=== PATIENT | female | born 1950 | race African-American/Black ===

== ENCOUNTER 2016-09-25 13:24 | Inpatient (IN) ==
--- NOTE | 2016-09-25 15:01 | Emergency Department Note ---
Arrival - Arrival Chief Complaint: Headache Stated Complaint: suresh,blurred vision,unbalanced,Dr armstrong sent ED Nursing Triage Note: pt was sent by dr armstrong. c/o headaches, off balance for a week. for the last week pt had a headhce when laying down. it would call her to sneezing and cough Mode of Arrival: Wheelchair Limitations: No Limitations Source: Patient Time Seen by Provider: 09/25/16 14:54 - History of Present Illness HPI Narrative: This is a 66-year-old black female who is complaining of a headache, off balance , and blurry vision for approximately 6-7 days. The patient was sent here from Dr. Armstrong's office. 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 She also states that she has an intracranial occipital lesion that was diagnosed 5 years ago at [place]. She describes the headache as encompassing the whole head with neck involvement, and states that she has point tenderness behind the eyes. She also states that she has had trouble regulating her blood pressure and her blood sugar. Onset (ago): week(s) (1) Consistency: intermittent Severity: moderate Allergies/Adverse Reactions: Allergies Allergy/AdvReac Type Severity Reaction Status Date / Time aspirin AdvReac DIFFICULTY Verified 09/25/16 15:55 SWALLOWING Home Medications: Home Medications Medication Instructions Recorded Confirmed Type Amitriptyline [Elavil] 10 mg PO DAILY 04/16/15 04/16/15 History Furosemide Tab [Lasix Tab] 20 mg PO DAILY 04/16/15 04/16/15 History Levothyroxine Tab [Synthroid Tab] 100 mcg PO DAILY@0700 04/16/15 04/16/15 History Naproxen [Naprosyn] 500 mg PO Q12H #30 tablet 04/16/15 Rx Omeprazole [Prilosec] 20 mg PO DAILY 04/16/15 04/16/15 History Oxycodone HCl [Oxycontin] 15 mg PO 04/16/15 04/16/15 History Pregabalin [Lyrica] 200 mg PO TID 04/16/15 04/16/15 History Valsartan/Hydrochlorothiazide 04/16/15 04/16/15 History [Diovan Hct 160-25 mg Tablet] Venlafaxine HCl [Effexor XR] 150 mg PO DAILY 04/16/15 04/16/15 History metFORMIN [Glucophage] 500 mg PO BID W/MEALS 04/16/15 04/16/15 History rOPINIRole [Requip] 1 mg PO BEDTIME 04/16/15 04/16/15 History Review of System - Review of System 12 point system: reviewed and no additional remarkable complaints except as stated - Review of System Constitutional: Present: as per HPI. Absent: fever Eyes: Present: as per HPI, vision change Neurological: Present: as per HPI, headache, abnormal gait (Off-balance) Medical,Surgical,& Family Hx - Medical History Cardio: History of: Hypertension Endocrine: History of: Diabetes Mellitus (NIDDM), Thyroid Disorder Rheumatology: History of;: Fibromyalgia Respiratory: History of: Respiratory Problems (blood clots in legs with filter) Musculoskeletal: History of: Musculoskeletal Problems (arthritis) - Social History Smoking Status: Never smoker Frequency of Alcohol Use: None Type of Drug Use: None Exam Physical Examination: - General General appearance: [alert, in mild to moderate distress] - Head Head exam: [Present: atraumatic, normocephalic, normal inspection] - Eye Eye exam: [Present: normal appearance, PERRL, EOMI] - ENT ENT exam: [Present: normal exam, normal oropharynx, mucous membranes moist, TM' s normal bilaterally, normal external ear exam] - Neck Neck exam: [Present: normal inspection, full ROM, trachea midline] - Chest Chest inspection: [Present: normal inspection, symmetric chest wall rise] - Respiratory Respiratory exam: [Present: normal lung sounds bilaterally] - Cardiovascular Cardiovascular exam: [Present: regular rate, normal rhythm, normal heart sounds] - Abdominal Exam Abdominal exam: [Present: soft, normal bowel sounds] - Extremities Exam Extremities exam: [Present: normal inspection, full ROM] - Back Exam Back exam: [Present: normal inspection, full ROM] - Neurological Exam Neurological exam: [Present: alert, oriented X3. 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 - Consultations Consultation #1: I have spoken with Mark in hospitalist services and he will come see the patient in nonurgent. Time: 17:26 Results - Labs CBC & BMP: 09/25/16 15:03 09/25/16 15:03 Lab Results: I have reviewed the patients labs - Diagnostic Findings Procedure: CT: image reviewed by me, report reviewed by me (No acute intracranial pathology identified) Disposition Clinical Impression: Headache, Visual disturbance, Loss of balance Case discussed with: patient Disposition: Still a Patient Condition: Stable Time of Disposition: 17:30
--- NOTE | 2016-09-25 15:32 | CT Report ---
CT of the head without contrast. Indication: Headaches. Balance problems. Visual disturbances. Comparison: April 08, 2014. There is a partial empty sella. The calvarium is intact. The included paranasal sinuses and the mastoid air cells are clear. The internal auditory canals are symmetric. The ventricles are normal in size and configuration for the patient's age. There is bilateral basal ganglial calcification. There is no mass effect, midline shift, or area of hemorrhage. No cortical infarcts are seen. Impression: No acute intracranial process or significant interval change is seen. The CT exam was performed using one or more of the following dose reduction techniques: Automated exposure control, adjustment of the mA and/or kV according to patient size, or use of iterative reconstruction technique. PROCEDURE INTERPRETED AT [facility] DEPARTMENT OF RADIOLOGY Final Report Signed by: Dr. Padmini Byrne
[2016-09-25 15:49] LABS: Basophils % 0.7 % (0.0-0.8); Eosinophils # 0.2 10*3/uL (0.0-0.87); Eosinophils % 3.6 % (0.00-10.9); Hematocrit 45.2 VOL% (35.7-47.0); Hemoglobin 15.4 GM/DL (12.0-16.0); Immature Granulocytes % 0.2 %; Immature Granulocytes Absolute 0.01 #; Lymphocytes # 2.8 10*3/uL (1.4-4.0); Lymphocytes % 45.5 % (21.3-54.2); Mean Corpuscular HGB Conc 34.1 GM/DL (32-36); Mean Corpuscular Hemoglobin 32 PG (27-34); Mean Corpuscular Volume 93.4 FL (87-102); Mean Platelet Volume 9.4 FL (9.6-12.0); Monocytes # 0.3 10*3/uL (0.11-0.8); Monocytes % 5.1 % (1.7-12.7); Neutrophils # 2.7 10*3/uL (1.4-7.4); Neutrophils % 44.9 % (38.7-73.9); Platelet Count 213 T/CUMM (130-400); Red Blood Count 4.84 MC/CUMM (3.8-5.5); Red Cell Distribution Width 12.7 % (9.3-17.3); White Blood Count 6.1 T/CUMM (4-12)
[2016-09-25] MEDS ORDERED: diphenhydrAMINE 50 MG/1 ML VIAL IV STA (15:53)
[2016-09-25] MEDS ORDERED: KETOROLAC 30 MG/1 ML VIAL IV STA (15:53)
[2016-09-25] MEDS ORDERED: diphenhydrAMINE 50 MG/1 ML VIAL ONE (16:01)
[2016-09-25] MEDS ORDERED: KETOROLAC 30 MG/1 ML VIAL ONE (16:01)
[2016-09-25 16:28] LABS: Calcium 9.4 MG/DL (8.5-10.1); Osmolality,Calculated 276.5 MOS/KG (273-304); Potassium 4.8 MMOL/L (3.5-5.1)
[2016-09-25 16:33] LABS: Apearance,Urine CLEAR (Clear); Bilirubin,Urine Negative (Negative); Blood, Urine Moderate mg/dL (Negative); Glucose,Urine (UA) Negative (Negative); Ketones,Urine Negative (Negative); Mucus,Urine Occasional /LPF (Occasional); Nitrite,Urine Negative (Negative); Protein,Urine Negative; RBC,Urine 1 /HPF (0-4); Urine Color Yellow (Yellow); Urine Specific Gravity 1.012 (1.001-1.035); Urine Urobilinogen < 2.0 EU/DL (0.2-1.0); WBC,Urine <1 /HPF (0-6)
[2016-09-25] MEDS ORDERED: GLUCAGON 1 MG VIAL IM PRN (17:51)
[2016-09-25] MEDS ORDERED: ACETAMINOPHEN 325 MG TABLET PO PRN (17:51)
[2016-09-25] MEDS ORDERED: DEXTROSE 50% 25 GM/50 ML VIAL IV PRN (17:51)
[2016-09-25] MEDS ORDERED: ONDANSETRON 4 MG/2 ML VIAL IV PRN (17:51)
[2016-09-25] MEDS ORDERED: ENOXAPARIN 40 MG/0.4 ML SYRINGE SUBCUT SCH (18:00)
[2016-09-25] MEDS ORDERED: FUROSEMIDE 20 MG TABLET PO PRN (20:01)
[2016-09-25] MEDS ORDERED: PROMETHAZINE 25 MG TABLET PO PRN (20:01)
--- NOTE | 2016-09-25 20:08 | Hospitalist History & Physical ---
Assessment and Plan (1) Vertigo Status: Acute Current Visit: Yes (2) History of a brain lesion Status: Acute Current Visit: Yes (3) Diabetes Status: Acute Current Visit: Yes (4) Thyroid disorder Status: Acute Current Visit: Yes (5) Headache Status: Acute Current Visit: Yes (6) Visual disturbance Status: Acute Assessment and plan: Our plan for this patient will be admission to our hospital. I will consult neurology for their evaluation. I will schedule her on high-dose ibuprofen for the migraine initially. We might need to switch over to a triptan if this is not effective. Going to get an MRI of her brain. She reports a occipital lobe lesion. Monitor her sugars and blood pressure and see if they truly are fluctuating as she says. We will start her on some low-dose meclizine to see if this is vertigo and see if it is of assistance to her. Will reevaluate patient in the morning and adjust plans appropriate. Current Visit: Yes (7) Loss of balance Status: Acute Current Visit: Yes History of Present Illness Chief complaint: Off-balance History of present illness: Ms. Gardner is a 66 year old female with past medical history significant for occipital lobe lesion, migraine with photophobia, fibromyalgia, thyroid, DVT and chronic anticoagulation was in her normal state of health for the past couple of days. Patient reports that she has had a bad headache during this time it at the base of her skull down her neck behind her eyes and behind her ears. It is photophobia also associated with it. She feels like she is having issues with vertigo. She is unsteady on her feet. Feels like the beds unsteady that when she sitting on it feels like the room was spinning at times. She has had some fluctuations in her blood pressure and Accu-Cheks. She had a home health nurse come evaluate her that called her primary care doctor which Dr. Simms and he recommended she come up to our hospital for further evaluation. I was consulted to admit her. Home Medications Medication Instructions Recorded Confirmed Type Amitriptyline [Elavil] 10 mg PO BEDTIME 04/16/15 09/25/16 History Furosemide Tab [Lasix Tab] 20 mg PO DAILY PRN 04/16/15 09/25/16 History Levothyroxine Tab [Synthroid Tab] 100 mcg PO DAILY@0700 04/16/15 09/25/16 History Omeprazole [Prilosec] 20 mg PO DAILY 04/16/15 09/25/16 History Oxycodone HCl [Oxycontin] 15 mg PO Q12H 04/16/15 09/25/16 History Pregabalin [Lyrica] 200 mg PO TID 04/16/15 09/25/16 History Valsartan/Hydrochlorothiazide 1 tablet PO DAILY 04/16/15 09/25/16 History [Diovan Hct 160-25 mg Tablet] Venlafaxine HCl [Effexor XR] 150 mg PO DAILY 04/16/15 09/25/16 History metFORMIN [Glucophage] 500 mg PO BID W/MEALS 04/16/15 09/25/16 History rOPINIRole [Requip] 1 mg PO BEDTIME 04/16/15 09/25/16 History Baclofen Tab [Lioresal] 10 mg PO Q12H 09/25/16 09/25/16 History Ibuprofen 800 mg PO BID PRN 09/25/16 09/25/16 History Pravastatin [Pravachol] 10 mg PO DAILY 09/25/16 09/25/16 History Promethazine Tab [Phenergan Tab] 25 mg PO Q4-6H PRN 09/25/16 09/25/16 History Rivaroxaban [Xarelto] 20 mg PO DAILY W/SUPPER 09/25/16 09/25/16 History amLODIPine [Norvasc] 5 mg PO DAILY 09/25/16 09/25/16 History glyBURIDE [Glyburide] 2.5 mg PO AC BREAKFAST 09/25/16 09/25/16 History Allergies Allergy/AdvReac Type Severity Reaction Status Date / Time aspirin AdvReac DIFFICULTY Verified 09/25/16 15:55 SWALLOWING Medical,Surgical,& Family Hx - Medical History Cardio: History of: Hypertension Neurology: History of: Migraine, Vertigo Endocrine: History of: Diabetes Mellitus (NIDDM), Thyroid Disorder Rheumatology: History of;: Fibromyalgia Respiratory: History of: Respiratory Problems (blood clots in legs with filter) Musculoskeletal: History of: Musculoskeletal Problems (arthritis) - Surgical History Orthopedic Surgeries: Surgical HX of;: Orthopedic Surgery - Family History Family History: Reports;: Family Cancer, Family Diabetes, Family Stroke - Social History Smoking Status: Never smoker Frequency of Alcohol Use: None Type of Drug Use: None 12 point system: reviewed and no additional remarkable complaints except as stated Exam - Constitutional Vitals: Period Temp Pulse Resp BP Sys/Martinez Pulse Ox Last 24 Hr 97.4 F-97.5 F 58-73 16-18 118-151/62-102 99-100 General appearance: mild distress - Head Head exam: Present: normal inspection - Eye Eye exam: Present: EOMI Pupils: Present: TIM (Patient seemed to be photophobic) - ENT ENT exam: Present: normal exam - Neck Neck exam: Present: normal inspection - Respiratory Respiratory exam: Present: clear to auscultation bilaterally - Cardiovascular Cardiovascular exam: Present: regular rate and rhythm - GI/Abdominal GI/Abdominal exam: Present: normal bowel sounds - Extremities Exam Extremities exam: Present: normal inspection - Back Exam Back exam: Present: normal inspection - Neurological Exam Neurological exam: Present: alert - Psychiatric Psychiatric exam: Present: normal affect - Skin Skin exam: Present: normal color, dry Results - Labs CBC & BMP: 09/25/16 15:03 09/25/16 15:03
[2016-09-25] MEDS: BACLOFEN 10 MG TABLET PO SCH (20:49)
[2016-09-25] MEDS: rOPINIRole 1 MG TABLET PO SCH (20:49)
[2016-09-25] MEDS: IBUPROFEN 800 MG TABLET PO SCH (20:49)
[2016-09-25] MEDS: PREGABALIN 100 MG CAPSULE PO SCH (20:50)
[2016-09-25] MEDS: MECLIZINE 25 MG TABLET PO SCH (20:55)
[2016-09-25] MEDS: INSULIN LISPRO 100 UNIT/ML SUBCUT SCH ×2 (20:57)
[2016-09-25] MEDS ORDERED: AMITRIPTYLINE 10 MG TABLET PO SCH (21:00)
[2016-09-26 05:40] LABS: Basophils % 0.7 % (0.0-0.8); Eosinophils # 0.3 10*3/uL (0.0-0.87); Eosinophils % 4.7 % (0.00-10.9); Hematocrit 38.5 VOL% (35.7-47.0); Hemoglobin 13.1 GM/DL (12.0-16.0); Immature Granulocytes % 0.6 %; Immature Granulocytes Absolute 0.03 #; Lymphocytes # 2.6 10*3/uL (1.4-4.0); Mean Corpuscular Hemoglobin 32 PG (27-34); Mean Corpuscular Volume 93.9 FL (87-102); Mean Platelet Volume 9.4 FL (9.6-12.0); Monocytes # 0.4 10*3/uL (0.11-0.8); Monocytes % 6.9 % (1.7-12.7); Neutrophils # 2.1 10*3/uL (1.4-7.4); Neutrophils % 39.1 % (38.7-73.9); Platelet Count 201 T/CUMM (130-400); Red Cell Distribution Width 12.8 % (9.3-17.3); White Blood Count 5.4 T/CUMM (4-12)
[2016-09-26 06:15] LABS: Calcium 8.6 MG/DL (8.5-10.1); Magnesium 2.3 MG/DL (1.8-2.4); Potassium 3.9 MMOL/L (3.5-5.1); Risk Ratio 2.82; Thyroid Stimulating Hormone 2.56 uIU/ml (0.358-3.74)
[2016-09-26] MEDS: IBUPROFEN 800 MG TABLET PO SCH ×2 (07:17→09:33)
[2016-09-26] MEDS: LEVOTHYROXINE 100 MCG TABLET PO SCH (07:17)
[2016-09-26] MEDS: INSULIN LISPRO 100 UNIT/ML SUBCUT SCH ×8 (08:07→22:45)
[2016-09-26] MEDS ORDERED: PANTOPRAZOLE 40 MG TABLET PO SCH (09:00)
[2016-09-26] MEDS: MECLIZINE 25 MG TABLET PO SCH ×3 (09:10→21:50)
[2016-09-26] MEDS: BACLOFEN 10 MG TABLET PO SCH ×2 (09:11→21:50)
[2016-09-26] MEDS: PANTOPRAZOLE 40 MG TABLET PO SCH (09:12)
[2016-09-26] MEDS: PREGABALIN 100 MG CAPSULE PO SCH ×2 (09:12→18:06)
[2016-09-26] MEDS: VENLAFAXINE XR 75 MG CAPSULE PO SCH (09:13)
[2016-09-26] MEDS: amLODIPine 5 MG TABLET PO SCH (09:13)
[2016-09-26] MEDS: VALSARTAN/HCTZ 80-12.5 MG TABLET PO SCH (09:15)
[2016-09-26] MEDS: PRAVASTATIN 20 MG TABLET PO SCH (09:15)
[2016-09-26] MEDS ORDERED: LORazepam 2 MG/1 ML VIAL IV ONE (10:28)
[2016-09-26] MEDS ORDERED: HYDROmorphone 2 MG/1 ML VIAL IV PRN (11:04)
--- NOTE | 2016-09-26 11:12 | Hospitalist Progress Note ---
Assessment and Plan - Time spent with patient Time spent with patient: Greater than 30 minutes (37 min total time with greater than 50% of time in discussion with pt and RN regarding current symptoms and tx plan) (1) Intractable headache Status: Acute Assessment and plan: MRI brain pending. Neurology consult pending. NSAIDs dc'd as I'm concerned about increased risk of bleeding using these meds in combo with chronic anticoagulation. Triptan relatively contraindicated for now until we exclude an acute ischemic event. Will have to rely on opiates for pain control for now. Current Visit: Yes (2) Vertigo Status: Acute Assessment and plan: Given exacerbation by head movement one would think we are dealing with peripheral vertigo as opposed to a cerebellar source. Has not responded to meclizine. Will trial low dose, scheduled Valium in addition to the meclizine. Related to headache? See above. Current Visit: Yes (3) Diabetes Status: Chronic Current Visit: Yes Qualifiers: Diabetes mellitus type: type 2 Diabetes mellitus complication status: with unspecified complications (4) Thyroid disorder Status: Chronic Current Visit: Yes Hospitalist: Subjective Interval history: Admitted last Pm with headache, vertigo, and impaired gait. No trauma. No new focal weakness/numbness. Pt has not gotten relief of symptoms with current tx. MRI brain pending. Exam - Constitutional Vitals: Period Temp Pulse Resp BP Sys/Martinez Pulse Ox Last 24 Hr 97.4 F-98.6 F 58-79 16-20 99-151/54-102 96-100 General appearance: no acute distress - Head Head exam: Present: normal inspection, normocephalic, atraumatic - Eye Eye exam: Present: EOMI, nystagmus. Absent: conjunctival injection, scleral icterus (photophobia. 3-4 beat horizontal nystagmus) Pupils: Present: TIM, normal accommodation - ENT ENT exam: Present: normal exam - Neck Neck exam: Present: normal inspection. Absent: lymphadenopathy, meningismus - Respiratory Respiratory exam: Present: clear to auscultation bilaterally. Absent: rales, rhonchi, wheezes - Cardiovascular Cardiovascular exam: Present: regular rate and rhythm. Absent: gallop, rubs - GI/Abdominal GI/Abdominal exam: Present: normal bowel sounds. Absent: tenderness - Extremities Exam Extremities exam: Present: normal inspection, full ROM - Neurological Exam Neurological exam: Present: alert, oriented X3, CN II-XII intact, other (gait not evaluated due to symptoms. pt reports worsened vertigo symptoms with any movement of her head) - Psychiatric Psychiatric exam: Present: normal affect, normal mood - Skin Skin exam: Present: normal color, warm, dry Results - Labs CBC & BMP: 09/26/16 05:06 09/26/16 05:06
--- NOTE | 2016-09-26 12:24 | Magnetic Resonance Report ---
Referring physician: Andre Wei MD Exam: MRI brain with and without contrast Date: September 27, 2015 Comparison: CT brain without contrast September 25, 2016 Reason: Unsteady gait, vertigo, headache The patient is an inpatient who was admitted on September 25, 2016. Technique: MRI of the brain was performed with and without the use of 20 cc of IV Dotarem contrast. Obtained precontrast images include sagittal T1, axial diffusion-weighted, axial FLAIR, axial T2, axial gradient and axial T1 sequences. Postcontrast sequences include axial and coronal T1 sequences. A 1.5 Kathryn magnet was used. Findings: No hydrocephalus or midline shift is present. There is no evidence of recent intracranial hemorrhage, abnormal mass effect or an acute infarction. No abnormal extra-axial fluid collection or suspicious intracranial enhancement is seen. Major vascular flow voids are visualized. The orbits, sella and brainstem are unremarkable. There is mild mucosal thickening within the inferior left maxillary sinus. The mastoid air cells appear clear. Degenerative change is noted at the cervical spine. Impression: No acute intracranial process is identified. PROCEDURE INTERPRETED AT [facility] DEPARTMENT OF RADIOLOGY Final Report Signed by: Dr. Madison Mendez
[2016-09-26] MEDS: RIVAROXABAN 20 MG TABLET PO SCH (14:45)
[2016-09-26] MEDS: DIAZEPAM 5 MG TABLET PO SCH ×2 (14:45→21:50)
--- NOTE | 2016-09-26 15:36 | Neurology Consult Note ---
History of Present Illness History of present illness: Ms. Gardner is a 66 year old right-handed -Mal[place]ian lady with past medical history significant for migraine with photophobia, fibromyalgia, thyroid , DVT and chronic anticoagulation was in her normal state of health for the past couple of days. Patient reports that she has had a bad headache during this time it at the base of her skull down her neck behind her eyes and behind her ears. It is associated with photophobia. She feels like she is having issues with vertigo. She is unsteady on her feet. Feels like the beds unsteady that when she sitting on it feels like the room was spinning at times. She has had some fluctuations in her blood pressure and Accu-Cheks. She had a home health nurse come evaluate her that called her primary care doctor which Dr. Simms and he recommended she come up to our hospital for further evaluation. She reported that her headache frequency is 3-4 per month. She had one bad migraine headaches per month. MRI of the brain is unremarkable for any acute pathology. Home Medications Medication Instructions Recorded Confirmed Type Amitriptyline [Elavil] 10 mg PO BEDTIME 04/16/15 09/25/16 History Furosemide Tab [Lasix Tab] 20 mg PO DAILY PRN 04/16/15 09/25/16 History Levothyroxine Tab [Synthroid Tab] 100 mcg PO DAILY@0700 04/16/15 09/25/16 History Omeprazole [Prilosec] 20 mg PO DAILY 04/16/15 09/25/16 History Oxycodone HCl [Oxycontin] 15 mg PO Q12H 04/16/15 09/25/16 History Pregabalin [Lyrica] 200 mg PO TID 04/16/15 09/25/16 History Valsartan/Hydrochlorothiazide 1 tablet PO DAILY 04/16/15 09/25/16 History [Diovan Hct 160-25 mg Tablet] Venlafaxine HCl [Effexor XR] 150 mg PO DAILY 04/16/15 09/25/16 History metFORMIN [Glucophage] 500 mg PO BID W/MEALS 04/16/15 09/25/16 History rOPINIRole [Requip] 1 mg PO BEDTIME 04/16/15 09/25/16 History Baclofen Tab [Lioresal] 10 mg PO Q12H 09/25/16 09/25/16 History Ibuprofen 800 mg PO BID PRN 09/25/16 09/25/16 History Pravastatin [Pravachol] 10 mg PO DAILY 09/25/16 09/25/16 History Promethazine Tab [Phenergan Tab] 25 mg PO Q4-6H PRN 09/25/16 09/25/16 History Rivaroxaban [Xarelto] 20 mg PO DAILY W/SUPPER 09/25/16 09/25/16 History amLODIPine [Norvasc] 5 mg PO DAILY 09/25/16 09/25/16 History glyBURIDE [Glyburide] 2.5 mg PO AC BREAKFAST 09/25/16 09/25/16 History Allergies Allergy/AdvReac Type Severity Reaction Status Date / Time aspirin AdvReac DIFFICULTY Verified 09/25/16 15:55 SWALLOWING 12 point system: reviewed and no additional remarkable complaints except as stated Medical,Surgical,& Family Hx - Medical History Cardio: History of: Hypertension Neurology: History of: Migraine, Vertigo Endocrine: History of: Diabetes Mellitus (NIDDM), Thyroid Disorder Rheumatology: History of;: Fibromyalgia Respiratory: History of: Respiratory Problems (blood clots in legs with filter) Musculoskeletal: History of: Musculoskeletal Problems (arthritis) - Surgical History Orthopedic Surgeries: Surgical HX of;: Orthopedic Surgery - Family History Family History: Reports;: Family Cancer, Family Diabetes, Family Stroke - Social History Smoking Status: Never smoker Frequency of Alcohol Use: None Type of Drug Use: None Exam - Constitutional Vitals: Period Temp Pulse Resp BP Sys/Martinez Pulse Ox Last 24 Hr 97.5 F-98.6 F 58-79 16-20 99-151/54-102 96-99 Exam: GENERAL: Patient is in no acute distress. NECK: Neck is supple. There is no JVD. No carotid bruits present. No thyroid masses. CVS: First and second heart sounds are normal. There is no S3 present. Regular rate and rhythm. RESPIRATORY: Lungs are clear to auscultation without any rales or rhonchi. ABDOMEN: Soft and non-tender. Bowel sounds are present. There is no hepatosplenomegaly. EXT: There is no palpable edema. Peripheral pulses are present. Skin: No rashes Central Nervous system: General: Alert, awake and Oriented x 3 Speech: Fluent Comprehension: Intact and normal Facial expressions: Normal Cranial Nerves: CN1/Olfactory: Normal CN II/ Optic: Normal, Visual Adames unreliable CN III, and : TIM & EOMI CN V: Normal & intact CN VII: face is symmetric CNVIII: Normal CN XI/X/XI/XII: Intact and Normal Motor: Bulk and Tone is normal. Strength in the right 5/5 Strength in the left 5/5 Sensory: Grossly intact for all the modalities of PP, LT and temp sense Reflexes: 1+ and symmetrical Cerebellar function: Normal finger to nose and heel to diop testing. Toes: Equivocal Gait: Not tested at this time Results - Labs CBC & BMP: 09/26/16 05:06 09/26/16 05:06 Assessment and Plan (1) Chronic migraine Status: Acute Assessment and plan: Change Elavil to 25 mg p.o. at bedtime No further intervention needed from neuro standpoint at this time She should follow with Dr Simms upon discharge. Home when ok with PCP. Thank you for the consult Current Visit: Yes
[2016-09-26] MEDS: rOPINIRole 1 MG TABLET PO SCH (21:50)
[2016-09-26] MEDS: AMITRIPTYLINE 25 MG TABLET PO SCH (21:52)
[2016-09-27] MEDS: PREGABALIN 100 MG CAPSULE PO SCH ×4 (01:13→21:31)
[2016-09-27] MEDS: LEVOTHYROXINE 100 MCG TABLET PO SCH (06:37)
--- NOTE | 2016-09-27 09:35 | Neurology Progress Note ---
Neurology - PN : Subjective Interval history: Patient seems to be doing okay. Still have mild headaches but it is better. Exam (Progress Note) - Constitutional Vitals: Period Temp Pulse Resp BP Sys/Martinez Pulse Ox Last 24 Hr 97.2 F-98.2 F 67-81 18-20 84-120/51-71 90-98 Exam: GENERAL: Patient is in no acute distress. NECK: Neck is supple. There is no JVD. No carotid bruits present. No thyroid masses. CVS: First and second heart sounds are normal. There is no S3 present. Regular rate and rhythm. RESPIRATORY: Lungs are clear to auscultation without any rales or rhonchi. ABDOMEN: Soft and non-tender. Bowel sounds are present. There is no hepatosplenomegaly. EXT: There is no palpable edema. Peripheral pulses are present. Skin: No rashes Central Nervous system: General: Alert, awake and Oriented x 3 Speech: Fluent Comprehension: Intact and normal Facial expressions: Normal Cranial Nerves: CN1/Olfactory: Normal CN II/ Optic: Normal, Visual Adames unreliable CN III, and : TIM & EOMI CN V: Normal & intact CN VII: face is symmetric CNVIII: Normal CN XI/X/XI/XII: Intact and Normal Motor: Bulk and Tone is normal. Strength in the right 5/5 Strength in the left 5/5 Sensory: Grossly intact for all the modalities of PP, LT and temp sense Reflexes: 1+ and symmetrical Cerebellar function: Normal finger to nose and heel to diop testing. Toes: Equivocal Gait: Going to the bathroom by herself Results - Labs CBC & BMP: 09/26/16 05:06 09/26/16 05:06 Assessment and Plan (1) Chronic migraine Status: Acute Assessment and plan: Continue Elavil 25 mg p.o. at bedtime Stop Antivert Current Visit: Yes
[2016-09-27] MEDS: BACLOFEN 10 MG TABLET PO SCH ×2 (09:38→21:31)
[2016-09-27] MEDS: VENLAFAXINE XR 75 MG CAPSULE PO SCH (09:39)
[2016-09-27] MEDS: PANTOPRAZOLE 40 MG TABLET PO SCH (09:39)
[2016-09-27] MEDS: amLODIPine 5 MG TABLET PO SCH (09:39)
[2016-09-27] MEDS: RIVAROXABAN 20 MG TABLET PO SCH (09:39)
[2016-09-27] MEDS: VALSARTAN/HCTZ 80-12.5 MG TABLET PO SCH (09:40)
[2016-09-27] MEDS: MECLIZINE 25 MG TABLET PO SCH (09:40)
[2016-09-27] MEDS: PRAVASTATIN 20 MG TABLET PO SCH (09:41)
[2016-09-27] MEDS: INSULIN LISPRO 100 UNIT/ML SUBCUT SCH ×8 (09:44→22:36)
[2016-09-27] MEDS: DIAZEPAM 5 MG TABLET PO SCH ×3 (09:45→21:31)
[2016-09-27] MEDS ORDERED: LORazepam 2 MG/1 ML VIAL IV ONE (14:01)
--- NOTE | 2016-09-27 14:15 | Hospitalist Progress Note ---
Assessment and Plan - Time spent with patient Time spent with patient: Greater than 30 minutes (1) Vertigo Status: Acute Assessment and plan: We will initiate a trial of Ativan. Neurology is involved. MRI is negative. Current Visit: Yes (2) Hypothyroidism Status: Acute Assessment and plan: Continue medications. Current Visit: Yes (3) Headache Status: Acute Assessment and plan: Continue treatment set in place by neurology. Current Visit: Yes (4) Hypertension Status: Acute Assessment and plan: Continue medications. Current Visit: Yes Hospitalist: Subjective Interval history: Patient complains of continued dizziness and spinning room. Exam - Constitutional Vitals: Period Temp Pulse Resp BP Sys/Martinez Pulse Ox Last 24 Hr 97.2 F-98.4 F 67-79 18-20 84-114/51-62 90-97 General appearance: no acute distress, over weight - Head Head exam: Present: normocephalic, atraumatic - Eye Eye exam: Present: EOMI Pupils: Present: TIM - ENT ENT exam: Present: normal exam - Neck Neck exam: Present: normal inspection - Respiratory Respiratory exam: Present: clear to auscultation bilaterally. Absent: rhonchi, wheezes - Cardiovascular Cardiovascular exam: Present: regular rate and rhythm. Absent: gallop, rubs, systolic murmur - GI/Abdominal GI/Abdominal exam: Present: normal bowel sounds, soft. Absent: distended, firm , guarding, tenderness, rebound - Extremities Exam Extremities exam: Present: normal inspection. Absent: calf tenderness, edema Results - Labs CBC & BMP: 09/26/16 05:06 09/26/16 05:06 Lab Results: I have reviewed the past 24 hour labs
[2016-09-27] MEDS: AMITRIPTYLINE 25 MG TABLET PO SCH (21:30)
[2016-09-27] MEDS: rOPINIRole 1 MG TABLET PO SCH (21:31)
[2016-09-28] MEDS: LEVOTHYROXINE 100 MCG TABLET PO SCH (06:49)
[2016-09-28] MEDS: INSULIN LISPRO 100 UNIT/ML SUBCUT SCH ×8 (08:00→20:59)
--- NOTE | 2016-09-28 09:09 | Neurology Progress Note ---
Neurology - PN : Subjective Interval history: Patient seems to be doing okay. Able to get up and walk. States dizziness is better. Headaches are better. Exam (Progress Note) - Constitutional Vitals: Period Temp Pulse Resp BP Sys/Martinez Pulse Ox Last 24 Hr 95.6 F-98.5 F 69-98 16-20 73-112/42-70 94-100 Exam: GENERAL: Patient is in no acute distress. NECK: Neck is supple. There is no JVD. No carotid bruits present. No thyroid masses. CVS: First and second heart sounds are normal. There is no S3 present. Regular rate and rhythm. RESPIRATORY: Lungs are clear to auscultation without any rales or rhonchi. ABDOMEN: Soft and non-tender. Bowel sounds are present. There is no hepatosplenomegaly. EXT: There is no palpable edema. Peripheral pulses are present. Skin: No rashes Central Nervous system: General: Alert, awake and Oriented x 3 Speech: Fluent Comprehension: Intact and normal Facial expressions: Normal Cranial Nerves: CN1/Olfactory: Normal CN II/ Optic: Normal, Visual Adames unreliable CN III, and : TIM & EOMI CN V: Normal & intact CN VII: face is symmetric CNVIII: Normal CN XI/X/XI/XII: Intact and Normal Motor: Bulk and Tone is normal. Strength in the right 5/5 Strength in the left 5/5 Sensory: Grossly intact for all the modalities of PP, LT and temp sense Reflexes: 1+ and symmetrical Cerebellar function: Normal finger to nose and heel to diop testing. Toes: Equivocal Gait: able to get up and walk by herself Results - Labs CBC & BMP: 09/26/16 05:06 09/26/16 05:06 Assessment and Plan (1) Chronic migraine Status: Acute Assessment and plan: Continue Elavil 25 mg p.o. at bedtime Stop Antivert consult ENT Current Visit: Yes
[2016-09-28] MEDS: BACLOFEN 10 MG TABLET PO SCH ×2 (09:31→20:52)
[2016-09-28] MEDS: PRAVASTATIN 20 MG TABLET PO SCH (09:31)
[2016-09-28] MEDS: VALSARTAN/HCTZ 80-12.5 MG TABLET PO SCH (09:31)
[2016-09-28] MEDS: RIVAROXABAN 20 MG TABLET PO SCH (09:31)
[2016-09-28] MEDS: VENLAFAXINE XR 75 MG CAPSULE PO SCH (09:31)
[2016-09-28] MEDS: PREGABALIN 100 MG CAPSULE PO SCH ×3 (09:31→20:52)
[2016-09-28] MEDS: DIAZEPAM 5 MG TABLET PO SCH ×2 (09:32→20:53)
[2016-09-28] MEDS: PANTOPRAZOLE 40 MG TABLET PO SCH (09:32)
[2016-09-28] MEDS: amLODIPine 5 MG TABLET PO SCH (09:32)
--- NOTE | 2016-09-28 12:39 | Hospitalist Progress Note ---
Assessment and Plan - Time spent with patient Time spent with patient: Greater than 30 minutes (1) Vertigo Status: Acute Assessment and plan: Neurology is involved. MRI is negative. ENT consulted. Current Visit: Yes (2) Hypothyroidism Status: Acute Assessment and plan: Continue medications. Current Visit: Yes (3) Headache Status: Acute Assessment and plan: Continue treatment set in place by neurology. Current Visit: Yes (4) Hypertension Status: Acute Assessment and plan: Continue medications. Current Visit: Yes Hospitalist: Subjective Interval history: Reports improved headache however still complains of dizziness. ENT was consulted by Neurology today. Exam - Constitutional Vitals: Period Temp Pulse Resp BP Sys/Martinez Pulse Ox Last 24 Hr 95.6 F-98.5 F 68-98 16-20 73-112/42-70 94-100 General appearance: no acute distress - Head Head exam: Present: normocephalic, atraumatic - Eye Eye exam: Present: EOMI Pupils: Present: TIM - ENT ENT exam: Present: normal exam - Neck Neck exam: Present: normal inspection - Respiratory Respiratory exam: Present: clear to auscultation bilaterally. Absent: rhonchi, wheezes - Cardiovascular Cardiovascular exam: Present: regular rate and rhythm. Absent: gallop, rubs, systolic murmur - GI/Abdominal GI/Abdominal exam: Present: normal bowel sounds, soft. Absent: distended, firm , guarding, tenderness, rebound - Extremities Exam Extremities exam: Present: normal inspection. Absent: calf tenderness, edema Results - Labs CBC & BMP: 09/26/16 05:06 09/26/16 05:06 Lab Results: I have reviewed the past 24 hour labs
--- NOTE | 2016-09-28 15:45 | Consultation ---
Assessment and Plan - Time spent with patient Time spent with patient: Less than 30 minutes (1) Benign paroxysmal positional vertigo of left ear Status: Acute Assessment and plan: Examination at bedside revealed a positive left geotropic nystagmus on Sandy- Hallpike consistent with left benign paroxysmal positional vertigo which is correspondedly treated with an Jazmyn maneuver and tolerated well. Discussion of the patient's symptoms and observation of lightheadedness disequilibrium and faintness upon standing would indicate there is some portion of an orthostatic phenomenon which I will defer to primary care. Additionally she does have a history of migraines which may be exacerbated by her BPPV but may also be a cause of some intermittent dizziness/disequilibrium but I would defer to neurology in this regards. I feel overall that her dizziness and disequilibrium is most certainly multifactorial and I feel that the BPPV can be improved and resolved and that along with addressing her headaches and potentially her orthostasis she may note some resolution of symptomatology. I will consult physical therapy to follow and continue to work with her. I would like to see her on follow-up after discharge make sure that this resolves as if it does not she may need to get a VNG and an audiogram to make sure there is no additional inner ear pathology. I will follow this patient intermittently throughout her course of stay if there is any questions please notify me. Thank you very much for this consult Current Visit: Yes (2) Disequilibrium Status: Acute Current Visit: Yes (3) Orthostatic dizziness Status: Acute Current Visit: Yes (4) Vertigo Status: Acute Current Visit: Yes (5) Chronic migraine Status: Acute Current Visit: Yes History of Present Illness - Data of Consult Patient: new to practice Consult date: 09/28/16 Requesting Physician: Bandar Toure - Consult Narrative Reason for consult: Vertigo History of present illness: Ms. Gardner is a 66 year old female with world spinning and lightheaded vertigo the patient notes it is worsened by laying up and standing down and any quick movements. Staying still makes it better it lasts several minutes but then has a lingering effect of disequilibrium and some nausea also the patient states she also notes that afterwards there can be a correlation or cause to her headaches that she is also being followed for. CC: Melinda Garza MD - Home Medications and Allergies Home Medications: Home Medications Medication Instructions Recorded Confirmed Type Amitriptyline [Elavil] 10 mg PO BEDTIME 04/16/15 09/25/16 History Furosemide Tab [Lasix Tab] 20 mg PO DAILY PRN 04/16/15 09/25/16 History Levothyroxine Tab [Synthroid Tab] 100 mcg PO DAILY@0700 04/16/15 09/25/16 History Omeprazole [Prilosec] 20 mg PO DAILY 04/16/15 09/25/16 History Oxycodone HCl [Oxycontin] 15 mg PO Q12H 04/16/15 09/25/16 History Pregabalin [Lyrica] 200 mg PO TID 04/16/15 09/25/16 History Valsartan/Hydrochlorothiazide 1 tablet PO DAILY 04/16/15 09/25/16 History [Diovan Hct 160-25 mg Tablet] Venlafaxine HCl [Effexor XR] 150 mg PO DAILY 04/16/15 09/25/16 History metFORMIN [Glucophage] 500 mg PO BID W/MEALS 04/16/15 09/25/16 History rOPINIRole [Requip] 1 mg PO BEDTIME 04/16/15 09/25/16 History Baclofen Tab [Lioresal] 10 mg PO Q12H 09/25/16 09/25/16 History Ibuprofen 800 mg PO BID PRN 09/25/16 09/25/16 History Pravastatin [Pravachol] 10 mg PO DAILY 09/25/16 09/25/16 History Promethazine Tab [Phenergan Tab] 25 mg PO Q4-6H PRN 09/25/16 09/25/16 History Rivaroxaban [Xarelto] 20 mg PO DAILY W/SUPPER 09/25/16 09/25/16 History amLODIPine [Norvasc] 5 mg PO DAILY 09/25/16 09/25/16 History glyBURIDE [Glyburide] 2.5 mg PO AC BREAKFAST 09/25/16 09/25/16 History Allergies/Adverse Reactions: Allergies Allergy/AdvReac Type Severity Reaction Status Date / Time aspirin AdvReac DIFFICULTY Verified 09/25/16 15:55 SWALLOWING 12 point system: reviewed and no additional remarkable complaints except as stated Medical,Surgical,& Family Hx - Medical History Cardio: History of: Hypertension Neurology: History of: Migraine, Vertigo Endocrine: History of: Diabetes Mellitus (NIDDM), Thyroid Disorder Rheumatology: History of;: Fibromyalgia Respiratory: History of: Respiratory Problems (blood clots in legs with filter) Musculoskeletal: History of: Musculoskeletal Problems (arthritis) - Surgical History Orthopedic Surgeries: Surgical HX of;: Orthopedic Surgery - Family History Family History: Reports;: Family Cancer, Family Diabetes, Family Stroke - Social History Smoking Status: Never smoker Frequency of Alcohol Use: None Type of Drug Use: None Exam - Constitutional Vitals: Period Temp Pulse Resp BP Sys/Martinez Pulse Ox Last 24 Hr 95.6 F-98.5 F 68-98 16-20 73-112/42-70 94-100 General appearance: normal weight, mild distress - Head Head exam: Present: normal inspection, normocephalic - Eye Eye exam: Present: nystagmus (Left geotropic nystagmus with left Juli-Hallpike corresponding Jazmyn maneuver performed at bedside and tolerated well) Pupils: Present: TIM - ENT ENT exam: Present: normal exam, normal external ear exam, normal oropharynx - Expanded ENT Exam Ear exam: Present: TM's normal bilaterally Mouth exam: Present: normal external inspection, moist Throat exam: Present: normal inspection - Neck Neck exam: Present: normal inspection - Respiratory Respiratory exam: Present: other (No shortness of breath or difficulty breathing ) - Cardiovascular Cardiovascular exam: Present: other (She notes lightheadedness with positional changes of standing up from sitting down consistent potentially with a orthostatic phenomenon.) - GI/Abdominal GI/Abdominal exam: Present: soft (No gross organomegaly) - Extremities Exam Extremities exam: Present: normal inspection - Back Exam Back exam: Present: normal inspection - Neurological Exam Neurological exam: Present: alert, oriented X3, CN II-XII intact (Please note nystagmus with Sandy-Hallpike above) - Psychiatric Psychiatric exam: Present: normal affect, normal mood - Skin Skin exam: Present: normal color, warm Results - Labs CBC & BMP: 09/26/16 05:06 09/26/16 05:06 Lab Results: I have reviewed the past 24 hour labs
[2016-09-28] MEDS: rOPINIRole 1 MG TABLET PO SCH (20:52)
[2016-09-28] MEDS: AMITRIPTYLINE 25 MG TABLET PO SCH (21:00)
[2016-09-29] MEDS: INSULIN LISPRO 100 UNIT/ML SUBCUT SCH ×4 (08:18→11:53)
[2016-09-29] MEDS: amLODIPine 5 MG TABLET PO SCH (08:35)
[2016-09-29] MEDS: DIAZEPAM 5 MG TABLET PO SCH (08:35)
[2016-09-29] MEDS: PREGABALIN 100 MG CAPSULE PO SCH (08:35)
[2016-09-29] MEDS: BACLOFEN 10 MG TABLET PO SCH (08:35)
[2016-09-29] MEDS: LEVOTHYROXINE 100 MCG TABLET PO SCH (08:35)
[2016-09-29] MEDS: PANTOPRAZOLE 40 MG TABLET PO SCH (08:35)
[2016-09-29] MEDS: VALSARTAN/HCTZ 80-12.5 MG TABLET PO SCH (08:35)
[2016-09-29] MEDS: VENLAFAXINE XR 75 MG CAPSULE PO SCH (08:36)
[2016-09-29] MEDS: PRAVASTATIN 20 MG TABLET PO SCH (08:36)
[2016-09-29] MEDS: RIVAROXABAN 20 MG TABLET PO SCH (08:36)
--- NOTE | 2016-09-29 09:48 | Discharge Summary ---
Hospital Course - Hospital Course Hospital Course: Ms. Gardner presented with vertigo and headache. CT the head in the ER was negative. Patient was admitted to hospital for further evaluation where she had an MRI of her brain. This was negative. Neurology was consulted and attempted a trial of Antivert. This was ineffective with regard to her vertigo. Patient was initiated on amitriptyline for her headache which is presumed to be a migraine with improvement in his symptoms. ENT was consulted regarding her vertigo and determined this was secondary to BPPV. Patient had an Jazmyn maneuver performed with improvement in her symptoms. By discharge she had met maximum benefit of hospitalization. I spent 32 minutes coordinating this discharge. - Time spent with patient Time with patient DS: Greater than 30 minutes Diagnosis - Discharge Diagnosis (1) Vertigo Status: Acute (2) Hypothyroidism Status: Acute (3) Headache Status: Acute (4) Hypertension Status: Acute Discharge Plan - Discharge Data Disposition: Disch To Home/Self Care Condition at Discharge: Stable Discharge Diet: advance to your usual diet Activity: resume usual activities as tolerated Hygiene: no restrictions - Discharge Medications New Acetaminophen Tab [Tylenol Tab] 325 mg PO Q4H PRN tablet PRN Reason: fever, headache/body aches Continue metFORMIN [Glucophage] 500 mg PO BID W/MEALS Levothyroxine Tab [Synthroid Tab] 100 mcg PO DAILY@0700 Amitriptyline [Elavil] 10 mg PO BEDTIME rOPINIRole [Requip] 1 mg PO BEDTIME Pregabalin [Lyrica] 200 mg PO TID Venlafaxine HCl [Effexor XR] 150 mg PO DAILY Omeprazole [Prilosec] 20 mg PO DAILY Furosemide Tab [Lasix Tab] 20 mg PO DAILY PRN PRN Reason: Edema Oxycodone HCl [Oxycontin] 15 mg PO Q12H glyBURIDE [Glyburide] 2.5 mg PO AC BREAKFAST Pravastatin [Pravachol] 10 mg PO DAILY Rivaroxaban [Xarelto] 20 mg PO DAILY W/SUPPER Promethazine Tab [Phenergan Tab] 25 mg PO Q4-6H PRN PRN Reason: Nausea Baclofen Tab [Lioresal] 10 mg PO Q12H Discontinued Valsartan/Hydrochlorothiazide [Diovan Hct 160-25 mg Tablet] 1 tablet PO DAILY Ibuprofen 800 mg PO BID PRN PRN Reason: Pain amLODIPine [Norvasc] 5 mg PO DAILY - Follow Up or Referral - Forms/Instructions Exam - Constitutional Vitals: Period Temp Pulse Resp BP Sys/Martinez Pulse Ox Last 24 Hr 97.6 F-98.3 F 65-89 16-18 94-134/54-72 95-99 General appearance: normal weight, no acute distress - Head Head exam: Present: normal inspection, normocephalic, atraumatic - Eye Eye exam: Present: EOMI Pupils: Present: TIM - ENT ENT exam: Present: normal exam - Neck Neck exam: Present: normal inspection - Respiratory Respiratory exam: Present: clear to auscultation bilaterally. Absent: accessory muscle use, prolonged expiratory phase, wheezes - Cardiovascular Cardiovascular exam: Present: bradycardia. Absent: carotid bruit, irregular rhythm, systolic murmur - GI/Abdominal GI/Abdominal exam: Present: normal bowel sounds. Absent: ascites, hypoactive bowel sounds, tenderness - Extremities Exam Extremities exam: Present: normal inspection Discharge Results Procedures and tests throughout hospitalization: Pending Orders 09/25/16 19:29 Blood Culture Stat Labs on day of discharge: Labs from last 24 hours 09/29/16 09/28/16 09/28/16 07:32 21:00 16:56 POC Glucose 91 112 H 82 09/28/16 09/28/16 11:42 07:33 POC Glucose 78 83 Preliminary micro results at discharge 09/25/16 19:29 Blood Culture - Preliminary Blood No growth at 3 days 09/25/16 19:29 Blood Culture - Preliminary Blood No growth at 3 days DS: Provider Date of admission: 09/25/16 17:51 Primary care physician: . No PCP Attending physician on admission: Andre Zendejas MD Consults: 09/25/16 17:51 Consult to Physician [CONS] Routine Comment: unrelenting headade, unsteady gait Consulting Provider: Bandar Toure Person Notified: Nazanin Date Notified: 09/26/16 Time Notified: 09:29 09/25/16 19:11 Consult to Dietitian [CONS] Routine Reason for Dietitian: Dietary Consult 09/28/16 09:10 Consult to Physician [CONS] Routine Comment: Dizziness Consulting Provider: Power Venegas Person Notified: Jolynn Date Notified: 09/28/16 Time Notified: 09:44 09/28/16 15:59 Consult to Physical Therapy [CONS] Routine Reason for Physical Therapy: Evaluate and Treat Consult Comment: BPPV Discharging clinician: Melinda Garza MD Expected date of discharge: 09/29/16
[2016-09-29 12:00] VITALS: BP 122/59
[2016-09-29] MEDS ORDERED: OXYCODONE PO SCH (20:15)
== END 2016-09-29 14:05 | disposition home or self-care (01) | DRG 103 ==
LOC: N.ED 13:24 → SUATTDRO 17:51 → N.4E 18:13
PROVIDERS: ADMIT Internal Medicine; ATTEND Internal Medicine

== ENCOUNTER 2017-11-28 10:57 | Observation (INO) ==
[2017-11-28 11:55] LABS: Apearance,Urine CLEAR (Clear); Bilirubin,Urine Negative (Negative); Blood, Urine Moderate mg/dL (Negative); Glucose,Urine (UA) Negative (Negative); Ketones,Urine Negative (Negative); Mucus,Urine Occasional /LPF (Occasional); Nitrite,Urine Negative (Negative); Protein,Urine Negative; RBC,Urine 2 /HPF (0-4); Squamous Epithelial Cell,Urine Occasional /HPF (0-10); Urine Color Yellow (Yellow); Urine Specific Gravity 1.014 (1.001-1.035); Urine Urobilinogen < 2.0 EU/DL (0.2-1.0); WBC,Urine <1 /HPF (0-6)
[2017-11-28] MEDS ORDERED: SODIUM CHLORIDE 0.9% 1,000 ML IV STA (12:42)
[2017-11-28] MEDS ORDERED: MECLIZINE 25 MG TABLET PO STA (12:42)
[2017-11-28 12:47] LABS: Basophils % 0.4 % (0.0-0.8); Eosinophils # 0.2 10*3/uL (0.0-0.87); Hematocrit 43.8 VOL% (35.7-47.0); Hemoglobin 14.5 GM/DL (12.0-16.0); Immature Granulocytes % 0.1 %; Immature Granulocytes Absolute 0.01 #; Lymphocytes # 2.4 10*3/uL (1.4-4.0); Lymphocytes % 35.3 % (21.3-54.2); Mean Corpuscular HGB Conc 33.1 GM/DL (32-36); Mean Corpuscular Hemoglobin 32 PG (27-34); Mean Corpuscular Volume 95.2 FL (87-102); Mean Platelet Volume 9.8 FL (9.6-12.0); Monocytes # 0.4 10*3/uL (0.11-0.8); Monocytes % 6.1 % (1.7-12.7); Neutrophils # 3.7 10*3/uL (1.4-7.4); Neutrophils % 55.1 % (38.7-73.9); Platelet Count 231 T/CUMM (130-400); Red Cell Distribution Width 12.8 % (9.3-17.3); White Blood Count 6.7 T/CUMM (4-12)
[2017-11-28] MEDS ORDERED: MECLIZINE 25 MG TABLET ONE (13:29)
[2017-11-28 14:11] LABS: Bilirubin,Total 0.7 MG/DL (0.2-1.0); Calcium 9.3 MG/DL (8.5-10.1); Osmolality,Calculated 280.3 MOS/KG (273-304); Potassium 4.9 MMOL/L (3.5-5.1); Thyroid Stimulating Hormone 8.02 uIU/ml (0.358-3.74); Total Protein 7.5 G/DL (6.4-8.3)
[2017-11-28] MEDS ORDERED: METOCLOPRAMIDE 10 MG/2 ML VIAL IV PRN (15:19)
[2017-11-28] MEDS ORDERED: chlorproMAZINE INJ 25 MG in SODIUM CHLORIDE 0.9% 100 ML IV PRN (15:19)
[2017-11-28] MEDS ORDERED: LORazepam 2 MG/1 ML VIAL IV ONE (15:25)
[2017-11-28] MEDS ORDERED: GLUCAGON 1 MG VIAL IM PRN (18:23)
[2017-11-28] MEDS ORDERED: DEXTROSE 50% 25 GM/50 ML VIAL IV PRN (18:23)
[2017-11-28] MEDS: LOVASTATIN 20 MG TABLET PO SCH (19:24)
[2017-11-28] MEDS: SODIUM CHLORIDE 0.45% 1,000 ML IV SCH (19:24)
[2017-11-28] MEDS: metFORMIN 500 MG TABLET PO SCH (19:24)
[2017-11-28] MEDS: ENOXAPARIN 40 MG/0.4 ML SYRINGE SUBCUT SCH (20:25)
[2017-11-28] MEDS: INSULIN LISPRO 100 UNIT/ML SUBCUT SCH (20:25)
[2017-11-28 21:52] LABS: Risk Ratio 3.33; VLDL CHOLESTEROL 25.4 MG/DL
[2017-11-29 04:58] LABS: Basophils % 0.4 % (0.0-0.8); Eosinophils # 0.2 10*3/uL (0.0-0.87); Eosinophils % 3.5 % (0.00-10.9); Hematocrit 41.2 VOL% (35.7-47.0); Hemoglobin 13.7 GM/DL (12.0-16.0); Immature Granulocytes % 0.1 %; Immature Granulocytes Absolute 0.01 #; Lymphocytes # 2.7 10*3/uL (1.4-4.0); Lymphocytes % 38.4 % (21.3-54.2); Mean Corpuscular HGB Conc 33.3 GM/DL (32-36); Mean Corpuscular Hemoglobin 31 PG (27-34); Mean Corpuscular Volume 94.3 FL (87-102); Mean Platelet Volume 10.2 FL (9.6-12.0); Monocytes # 0.5 10*3/uL (0.11-0.8); Monocytes % 7.4 % (1.7-12.7); Neutrophils # 3.5 10*3/uL (1.4-7.4); Neutrophils % 50.2 % (38.7-73.9); Platelet Count 211 T/CUMM (130-400); Red Blood Count 4.37 MC/CUMM (3.8-5.5); Red Cell Distribution Width 12.9 % (9.3-17.3); White Blood Count 6.9 T/CUMM (4-12)
[2017-11-29 05:31] LABS: Albumin 3.5 G/DL (3.4-5.0); Osmolality,Calculated 284.1 MOS/KG (273-304); Potassium 3.7 MMOL/L (3.5-5.1)
[2017-11-29] MEDS ORDERED: LEVOTHYROXINE 100 MCG VIAL IV SCH ×3 (06:30→10:12)
[2017-11-29] MEDS ORDERED: LEVOTHYROXINE 100 MCG TABLET PO SCH (07:00)
[2017-11-29] MEDS: INSULIN LISPRO 100 UNIT/ML SUBCUT SCH ×4 (08:47→21:27)
[2017-11-29] MEDS ORDERED: PRAVASTATIN 20 MG TABLET PO SCH (09:00)
[2017-11-29] MEDS: glyBURIDE 2.5 MG TABLET PO SCH (09:17)
[2017-11-29] MEDS: PANTOPRAZOLE 40 MG TABLET PO SCH (09:17)
[2017-11-29] MEDS: metFORMIN 500 MG TABLET PO SCH ×2 (09:17→17:54)
[2017-11-29] MEDS: SODIUM CHLORIDE 0.45% 1,000 ML IV SCH (09:18)
[2017-11-29] MEDS: LOVASTATIN 20 MG TABLET PO SCH (17:54)
[2017-11-29] MEDS: ENOXAPARIN 40 MG/0.4 ML SYRINGE SUBCUT SCH (21:27)
[2017-11-30] MEDS ORDERED: MELATONIN 3 MG TABLET PO PRN (00:09)
[2017-11-30] MEDS: INSULIN LISPRO 100 UNIT/ML SUBCUT SCH (08:33)
[2017-11-30] MEDS: glyBURIDE 2.5 MG TABLET PO SCH (08:35)
[2017-11-30] MEDS: PANTOPRAZOLE 40 MG TABLET PO SCH (08:35)
[2017-11-30] MEDS: metFORMIN 500 MG TABLET PO SCH (08:36)
[2017-11-30 09:21] VITALS: BP 146/92
== END 2017-11-30 10:07 | disposition home or self-care (01) ==
LOC: N.ED 10:57 → N.EDINP 10:57 → SUPCPDRO 15:21 → N.EDINP 18:25 → N.4E 18:44
PROVIDERS: ADMIT Internal Medicine; ATTEND Internal Medicine

== ENCOUNTER 2018-03-13 22:17 | Inpatient (IN) ==
[2018-03-13] MEDS ORDERED: METOCLOPRAMIDE 10 MG/2 ML VIAL IV STA (22:59)
[2018-03-13] MEDS ORDERED: LORazepam 2 MG/1 ML VIAL IV STA (23:00)
[2018-03-14] MEDS ORDERED: SODIUM CHLORIDE 0.9% 1,000 ML IV STA ×2 (00:39→02:49)
[2018-03-14 01:05] LABS: Basophils % 0.2 % (0.0-0.8); Eosinophils % 0.1 % (0.00-10.9); Hematocrit 43.2 VOL% (35.7-47.0); Hemoglobin 14.3 GM/DL (12.0-16.0); Immature Granulocytes % 0.4 %; Immature Granulocytes Absolute 0.06 #; Lymphocytes # 0.7 10*3/uL (1.4-4.0); Lymphocytes % 4.7 % (21.3-54.2); Mean Corpuscular HGB Conc 33.1 GM/DL (32-36); Mean Corpuscular Hemoglobin 31 PG (27-34); Mean Corpuscular Volume 94.1 FL (87-102); Mean Platelet Volume 10.3 FL (9.6-12.0); Monocytes # 0.6 10*3/uL (0.11-0.8); Monocytes % 4.1 % (1.7-12.7); Neutrophils # 12.8 10*3/uL (1.4-7.4); Neutrophils % 90.5 % (38.7-73.9); Platelet Count 237 T/CUMM (130-400); Red Blood Count 4.59 MC/CUMM (3.8-5.5); Red Cell Distribution Width 12.6 % (9.3-17.3); White Blood Count 14.2 T/CUMM (4-12)
[2018-03-14 01:18] LABS: Albumin 3.7 G/DL (3.4-5.0); Osmolality,Calculated 280.5 MOS/KG (273-304); Potassium 3.9 MMOL/L (3.5-5.1); Total Protein 8.1 G/DL (6.4-8.3)
[2018-03-14 02:08] LABS: Lymphocytes 5 % (20-55); Platelet Estimate Normal; Segmented Neutrophils 89 % (50-85); Total Cells Counted 100
[2018-03-14] MEDS ORDERED: CEFEPIME 2,000 MG in SODIUM CHLORIDE 0.9% 100 ML IV STA (02:23)
[2018-03-14] MEDS ORDERED: VANCOMYCIN INJ 1,000 MG in SODIUM CHLORIDE 0.9% 250 ML IV STA (02:23)
[2018-03-14 03:19] LABS: Apearance,Urine CLEAR (Clear); Bilirubin,Urine Negative (Negative); Blood, Urine Moderate mg/dL (Negative); Glucose,Urine (UA) Negative (Negative); Ketones,Urine Negative (Negative); Nitrite,Urine Negative (Negative); Protein,Urine 30 MG/DL; RBC,Urine 31 /HPF (0-4); Squamous Epithelial Cell,Urine Occasional /HPF (0-10); Urine Color Straw (Yellow); Urine Specific Gravity 1.032 (1.001-1.035); Urine Urobilinogen < 2.0 EU/DL (0.2-1.0); WBC,Urine 2 /HPF (0-6)
[2018-03-14] MEDS ORDERED: CEFEPIME 2,000 MG VIAL ONE (03:42)
[2018-03-14] MEDS ORDERED: VANCOMYCIN 1,000 MG VIAL ONE (03:43)
[2018-03-14] MEDS ORDERED: SODIUM CHLORIDE 0.9% 250 ML IV ONE (03:44)
[2018-03-14] MEDS ORDERED: ONDANSETRON 4 MG/2 ML VIAL IV PRN (05:05)
[2018-03-14] MEDS ORDERED: GLUCAGON 1 MG VIAL IM PRN (05:05)
[2018-03-14] MEDS ORDERED: DEXTROSE 50% 25 GM/50 ML VIAL IV PRN (05:05)
[2018-03-14] MEDS ORDERED: ACETAMINOPHEN 325 MG TABLET PO PRN (05:05)
[2018-03-14] MEDS ORDERED: IBUPROFEN 600 MG TABLET PO PRN (05:11)
[2018-03-14] MEDS ORDERED: ACETAMINOPHEN 500 MG TABLET PO STA (05:21)
[2018-03-14] MEDS ORDERED: cefTRIAXone 1,000 MG in SYRINGE 1 EACH IV SCH (05:30)
[2018-03-14] MEDS ORDERED: ACETAMINOPHEN 325 MG TABLET ONE (05:42)
[2018-03-14] MEDS ORDERED: AZITHROMYCIN INJ 500 MG in SODIUM CHLORIDE 0.9% 250 ML IV SCH (06:00)
[2018-03-14] MEDS: SODIUM CHLORIDE 0.9% 1,000 ML IV SCH ×2 (06:32→15:57)
[2018-03-14] MEDS: INSULIN LISPRO 100 UNIT/ML SUBCUT SCH ×4 (07:15→22:14)
[2018-03-14] MEDS ORDERED: cefTRIAXone 1,000 MG in SYRINGE 1 EACH IV ONE (09:00)
[2018-03-14 10:13] LABS: INR 1.1
[2018-03-14 13:56] LABS: Appearance,CSF Clear; Lymphocytes,CSF 40 %; Neutrophils,CSF 60 %; Red Blood Cell,CSF 419 C/CUMM; White Blood Cell,CSF 23 C/CUMM
[2018-03-14] MEDS: cefTRIAXone 2,000 MG in SYRINGE 1 EACH IV SCH (20:06)
[2018-03-15] MEDS: SODIUM CHLORIDE 0.9% 1,000 ML IV SCH ×2 (00:01→08:02)
[2018-03-15] MEDS ORDERED: PHENOL 1.4% THROAT SPRAY 177 ML BOTTLE PO PRN (00:03)
[2018-03-15 04:55] LABS: Basophils % 0.2 % (0.0-0.8); Eosinophils # 0.2 10*3/uL (0.0-0.87); Eosinophils % 1.7 % (0.00-10.9); Hematocrit 38.6 VOL% (35.7-47.0); Hemoglobin 12.4 GM/DL (12.0-16.0); Immature Granulocytes % 0.2 %; Immature Granulocytes Absolute 0.03 #; Lymphocytes # 2.4 10*3/uL (1.4-4.0); Lymphocytes % 19.5 % (21.3-54.2); Mean Corpuscular HGB Conc 32.1 GM/DL (32-36); Mean Corpuscular Hemoglobin 31 PG (27-34); Mean Corpuscular Volume 95.8 FL (87-102); Monocytes % 8.2 % (1.7-12.7); Neutrophils # 8.4 10*3/uL (1.4-7.4); Neutrophils % 70.2 % (38.7-73.9); Platelet Count 183 T/CUMM (130-400); Red Blood Count 4.03 MC/CUMM (3.8-5.5); White Blood Count 12.1 T/CUMM (4-12)
[2018-03-15 05:19] LABS: Calcium 8.1 MG/DL (8.5-10.1); Osmolality,Calculated 283.8 MOS/KG (273-304); Potassium 3.4 MMOL/L (3.5-5.1)
[2018-03-15] MEDS: INSULIN LISPRO 100 UNIT/ML SUBCUT SCH ×4 (07:30→22:17)
[2018-03-15] MEDS ORDERED: POTASSIUM CHLORIDE 20 MEQ/15 ML UDCUP PO ONE (07:36)
[2018-03-15] MEDS ORDERED: KETOROLAC 30 MG/1 ML VIAL IV ONE (08:52)
[2018-03-15] MEDS: cefTRIAXone 2,000 MG in SYRINGE 1 EACH IV SCH ×2 (09:03→21:54)
[2018-03-15] MEDS ORDERED: LORazepam 2 MG/1 ML VIAL IM ONE (10:05)
[2018-03-15] MEDS ORDERED: LORazepam 2 MG/1 ML VIAL IV ONE (10:07)
[2018-03-15] MEDS ORDERED: ACYCLOVIR INJ 1,250 MG in SODIUM CHLORIDE 0.9% 250 ML IV SCH (10:30)
[2018-03-15] MEDS: SODIUM CHLORIDE 0.9% IV SCH ×2 (11:40→20:08)
[2018-03-15] MEDS: ACYCLOVIR IV SCH ×2 (11:40→20:08)
[2018-03-15] MEDS: RIVAROXABAN 20 MG TABLET PO SCH (17:12)
[2018-03-16] MEDS: SODIUM CHLORIDE 0.9% 1,000 ML IV SCH ×5 (04:13→21:44)
[2018-03-16] MEDS: ACYCLOVIR IV SCH ×3 (04:13→21:44)
[2018-03-16] MEDS: SODIUM CHLORIDE 0.9% IV SCH ×3 (04:13→21:44)
[2018-03-16 05:29] LABS: Basophils % 0.4 % (0.0-0.8); Eosinophils # 0.5 10*3/uL (0.0-0.87); Eosinophils % 6.6 % (0.00-10.9); Hematocrit 36.3 VOL% (35.7-47.0); Hemoglobin 11.8 GM/DL (12.0-16.0); Immature Granulocytes % 0.1 %; Immature Granulocytes Absolute 0.01 #; Lymphocytes # 2.1 10*3/uL (1.4-4.0); Lymphocytes % 27.3 % (21.3-54.2); Mean Corpuscular HGB Conc 32.5 GM/DL (32-36); Mean Corpuscular Hemoglobin 31 PG (27-34); Mean Corpuscular Volume 95.5 FL (87-102); Mean Platelet Volume 9.8 FL (9.6-12.0); Monocytes # 0.6 10*3/uL (0.11-0.8); Monocytes % 7.4 % (1.7-12.7); Neutrophils # 4.4 10*3/uL (1.4-7.4); Neutrophils % 58.2 % (38.7-73.9); Platelet Count 173 T/CUMM (130-400); Red Cell Distribution Width 12.7 % (9.3-17.3); White Blood Count 7.5 T/CUMM (4-12)
[2018-03-16 05:52] LABS: Calcium 8.3 MG/DL (8.5-10.1); Potassium 3.6 MMOL/L (3.5-5.1)
[2018-03-16 06:01] LABS: Thyroid Stimulating Hormone 7.83 uIU/ml (0.358-3.74); VLDL CHOLESTEROL 17.6 MG/DL
[2018-03-16] MEDS: INSULIN LISPRO 100 UNIT/ML SUBCUT SCH ×4 (07:54→21:38)
[2018-03-16] MEDS: cefTRIAXone 2,000 MG in SYRINGE 1 EACH IV SCH ×2 (09:08→21:44)
[2018-03-16] MEDS: RIVAROXABAN 20 MG TABLET PO SCH (16:30)
[2018-03-17] MEDS: ACYCLOVIR IV SCH ×3 (05:14→20:45)
[2018-03-17] MEDS: SODIUM CHLORIDE 0.9% IV SCH ×3 (05:14→20:45)
[2018-03-17] MEDS: cefTRIAXone 2,000 MG in SYRINGE 1 EACH IV SCH ×2 (08:00→20:32)
[2018-03-17] MEDS: INSULIN LISPRO 100 UNIT/ML SUBCUT SCH ×4 (08:00→20:30)
[2018-03-17] MEDS: SODIUM CHLORIDE 0.9% 1,000 ML IV SCH ×4 (09:30→20:10)
[2018-03-17] MEDS: amLODIPine 5 MG TABLET PO SCH (13:52)
[2018-03-17] MEDS: RIVAROXABAN 20 MG TABLET PO SCH (16:22)
[2018-03-17] MEDS ORDERED: rOPINIRole 1 MG TABLET PO SCH (21:00)
[2018-03-18] MEDS: SODIUM CHLORIDE 0.9% 1,000 ML IV SCH ×2 (03:09→08:54)
[2018-03-18] MEDS: SODIUM CHLORIDE 0.9% IV SCH ×2 (05:16→13:55)
[2018-03-18] MEDS: ACYCLOVIR IV SCH ×2 (05:16→13:55)
[2018-03-18] MEDS: INSULIN LISPRO 100 UNIT/ML SUBCUT SCH ×2 (07:57→11:28)
[2018-03-18] MEDS: amLODIPine 5 MG TABLET PO SCH (08:00)
[2018-03-18] MEDS: cefTRIAXone 2,000 MG in SYRINGE 1 EACH IV SCH (08:01)
[2018-03-18] MEDS ORDERED: FUROSEMIDE 20 MG TABLET PO PRN (08:41)
[2018-03-18] MEDS ORDERED: BACLOFEN 10 MG TABLET PO SCH (09:00)
[2018-03-18] MEDS ORDERED: glyBURIDE 2.5 MG TABLET PO SCH (09:00)
[2018-03-18] MEDS ORDERED: VENLAFAXINE XR 75 MG CAPSULE PO SCH (09:00)
[2018-03-18 11:42] VITALS: BP 151/94
[2018-03-18] MEDS ORDERED: metFORMIN 500 MG TABLET PO SCH (17:00)
[2018-03-18] MEDS ORDERED: LOVASTATIN 20 MG TABLET PO SCH (17:00)
[2018-03-19] MEDS ORDERED: LEVOTHYROXINE 100 MCG TABLET PO SCH (06:30)
== END 2018-03-18 15:30 | disposition home or self-care (01) | DRG 153 ==
LOC: N.ED 22:17 → N.EDINP 22:17 → N.2E 03-14 05:33 → SUATTDRO 03-14 12:29
PROVIDERS: ADMIT Internal Medicine Infectious Disease; ATTEND Internal Medicine

== ENCOUNTER 2019-09-16 11:49 | Observation (INO) ==
[2019-09-16 13:13] LABS: Basophils % 0.6 % (0.0-0.8); Eosinophils # 0.2 10*3/uL (0.0-0.87); Eosinophils % 2.3 % (0.00-10.9); Hematocrit 44.7 VOL% (35.7-47.0); Hemoglobin 14.5 GM/DL (12.0-16.0); Immature Granulocytes % 0.3 %; Immature Granulocytes Absolute 0.02 #; Lymphocytes # 2.9 10*3/uL (1.4-4.0); Lymphocytes % 39.5 % (21.3-54.2); Mean Corpuscular HGB Conc 32.4 GM/DL (32-36); Mean Corpuscular Volume 95.5 FL (87-102); Mean Platelet Volume 9.6 FL (9.6-12.0); Neutrophils % 50.3 % (38.7-73.9); Platelet Count 228 T/CUMM (130-400); Red Blood Count 4.68 MC/CUMM (3.8-5.5); Red Cell Distribution Width 12.7 % (9.3-17.3); White Blood Count 7.3 T/CUMM (4-12)
[2019-09-16 13:24] LABS: INR 1.2; PT Patient Result 12.8 SECS (9.8-11.9); Partial Thromboplastin Time 34.5 SECS (23.9-33.8)
[2019-09-16 13:40] LABS: Albumin 3.8 G/DL (3.4-5.0); Bilirubin,Total 0.8 MG/DL (0.2-1.0); Calcium 9.1 MG/DL (8.5-10.1); Osmolality,Calculated 277.4 MOS/KG (273-304); Total Protein 7.5 G/DL (6.4-8.3)
[2019-09-16] MEDS ORDERED: BISACODYL 5 MG TABLET PO PRN (16:09)
[2019-09-16] MEDS ORDERED: DOCUSATE SODIUM 100 MG CAPSULE PO PRN (16:09)
[2019-09-16] MEDS ORDERED: DEXTROSE 10% 250 ML BAG IV PRN (16:09)
[2019-09-16] MEDS ORDERED: GLUCAGON 1 MG VIAL IM PRN (16:09)
[2019-09-16] MEDS ORDERED: ONDANSETRON 4 MG/2 ML VIAL IV PRN (16:09)
[2019-09-16] MEDS ORDERED: LACTULOSE 20 GM/30 ML UDCUP PO PRN (16:09)
[2019-09-16] MEDS ORDERED: SIMETHICONE CHEW 125 MG TABLET PO PRN (16:09)
[2019-09-16 16:26] LABS: Ferritin 133.6 ng/ml (8-252)
[2019-09-16] MEDS: INSULIN REGULAR 100 UNIT/ML SUBCUT SCH ×2 (18:30→23:24)
[2019-09-16] MEDS: ACETAMINOPHEN 325 MG TABLET PO PRN (18:59)
[2019-09-16 19:19] LABS: Barbiturates Screen,Urine Negative (Negative); Benzodiazepines Screen,Urine Negative (Negative); Cannabinoid Screen,Urine Negative (Negative); Opiate Screen,Urine Negative (Negative); Phencyclidine Screen,Urine Negative (Negative)
[2019-09-17] MEDS: ACETAMINOPHEN 325 MG TABLET PO PRN ×3 (00:44→18:20)
[2019-09-17] MEDS ORDERED: ALPRAZolam 0.5 MG TABLET PO ONE (01:00)
[2019-09-17 05:12] LABS: Basophils % 0.5 % (0.0-0.8); Eosinophils # 0.2 10*3/uL (0.0-0.87); Eosinophils % 3.2 % (0.00-10.9); Hematocrit 42.6 VOL% (35.7-47.0); Immature Granulocytes % 0.3 %; Immature Granulocytes Absolute 0.02 #; Lymphocytes # 2.8 10*3/uL (1.4-4.0); Lymphocytes % 42.3 % (21.3-54.2); Mean Corpuscular HGB Conc 32.9 GM/DL (32-36); Mean Corpuscular Volume 94.5 FL (87-102); Mean Platelet Volume 9.5 FL (9.6-12.0); Monocytes % 7.7 % (1.7-12.7); Platelet Count 216 T/CUMM (130-400); Red Blood Count 4.51 MC/CUMM (3.8-5.5); White Blood Count 6.6 T/CUMM (4-12)
[2019-09-17 05:44] LABS: Albumin 3.4 G/DL (3.4-5.0); Bilirubin,Total 1.7 MG/DL (0.2-1.0); Calcium 8.9 MG/DL (8.5-10.1); Osmolality,Calculated 277.5 MOS/KG (273-304); Total Protein 7.1 G/DL (6.4-8.3)
[2019-09-17 05:54] LABS: Risk Ratio 3.81; Thyroid Stimulating Hormone 0.767 uIU/ml (0.358-3.74); VLDL CHOLESTEROL 26.2 MG/DL
[2019-09-17] MEDS: LEVOTHYROXINE 100 MCG TABLET PO SCH (06:07)
[2019-09-17] MEDS: INSULIN REGULAR 100 UNIT/ML SUBCUT SCH ×4 (08:35→20:09)
[2019-09-17] MEDS: PANTOPRAZOLE 40 MG TABLET PO SCH (09:50)
[2019-09-17] MEDS: metFORMIN 500 MG TABLET PO SCH (18:20)
[2019-09-18 06:03] LABS: Basophils % 0.5 % (0.0-0.8); Eosinophils # 0.3 10*3/uL (0.0-0.87); Eosinophils % 4.1 % (0.00-10.9); Hemoglobin 14.3 GM/DL (12.0-16.0); Immature Granulocytes % 0.2 %; Immature Granulocytes Absolute 0.01 #; Lymphocytes # 2.5 10*3/uL (1.4-4.0); Lymphocytes % 41.5 % (21.3-54.2); Mean Corpuscular HGB Conc 32.5 GM/DL (32-36); Mean Corpuscular Volume 96.9 FL (87-102); Mean Platelet Volume 9.7 FL (9.6-12.0); Monocytes % 8.1 % (1.7-12.7); Neutrophils % 45.6 % (38.7-73.9); Platelet Count 210 T/CUMM (130-400); Red Blood Count 4.54 MC/CUMM (3.8-5.5); White Blood Count 6.1 T/CUMM (4-12)
[2019-09-18] MEDS: LEVOTHYROXINE 100 MCG TABLET PO SCH (06:11)
[2019-09-18 06:17] LABS: Albumin 3.3 G/DL (3.4-5.0); Calcium 9.1 MG/DL (8.5-10.1); Total Protein 7.4 G/DL (6.4-8.3)
[2019-09-18] MEDS: INSULIN REGULAR 100 UNIT/ML SUBCUT SCH ×2 (08:31→12:06)
[2019-09-18] MEDS: PANTOPRAZOLE 40 MG TABLET PO SCH (08:43)
[2019-09-18] MEDS: metFORMIN 500 MG TABLET PO SCH (08:43)
[2019-09-18] MEDS ORDERED: CLOPIDOGREL 75 MG TABLET PO SCH (09:00)
[2019-09-18 11:44] VITALS: BP 119/75
[2019-09-18] MEDS ORDERED: ROSUVASTATIN 20 MG TABLET PO SCH (21:00)
== END 2019-09-18 13:56 | disposition home health service (06) ==
LOC: N.ED 11:49 → N.EDINP 11:49 → SUATTDRO 16:05 → N.TELES 17:22
PROVIDERS: ADMIT Internal Medicine; ATTEND Internal Medicine

== ENCOUNTER 2021-03-07 09:31 | Observation (INO) ==
[2021-03-07 10:42] LABS: Basophils % 0.5 % (0.0-0.8); Eosinophils # 0.3 10*3/uL (0.0-0.87); Hematocrit 45.8 VOL% (35.7-47.0); Hemoglobin 14.8 GM/DL (12.0-16.0); Immature Granulocytes % 0.3 %; Immature Granulocytes Absolute 0.02 #; Lymphocytes # 2.2 10*3/uL (1.4-4.0); Lymphocytes % 34.1 % (21.3-54.2); Mean Corpuscular HGB Conc 32.3 GM/DL (32-36); Mean Corpuscular Volume 97.4 FL (87-102); Mean Platelet Volume 9.7 FL (9.6-12.0); Monocytes % 7.5 % (1.7-12.7); Neutrophils % 53.6 % (38.7-73.9); Platelet Count 239 T/CUMM (130-400); Red Cell Distribution Width 12.9 % (9.3-17.3); White Blood Count 6.5 T/CUMM (4-12)
[2021-03-07 10:55] LABS: Albumin 3.6 G/DL (3.4-5.0); Bilirubin,Total 0.6 MG/DL (0.20-1.00); Calcium 9.3 MG/DL (8.5-10.1); Osmolality,Calculated 280.4 MOS/KG (273-304); Potassium 4.1 MMOL/L (3.5-5.1); Total Protein 7.7 G/DL (6.4-8.2)
[2021-03-07 11:10] LABS: Bilirubin,Urine Negative (Negative); Blood, Urine Negative (Negative); Glucose,Urine (UA) Negative (Negative); Ketones,Urine Negative (Negative); Mucus,Urine Occasional /LPF (Occasional); Nitrite,Urine Negative (Negative); Protein,Urine Negative; RBC,Urine 7 /HPF (0-4); Squamous Epithelial Cell,Urine Few /HPF (0-10); Urine Appearance CLEAR (Clear); Urine Color Yellow (Yellow); Urine Specific Gravity 1.017 (1.001-1.035); Urine Urobilinogen < 2.0 EU/DL (0.2-1.0)
[2021-03-07 12:11] LABS: INR 1.2; PT Patient Result 13.1 SECS (10.5-12.0); Partial Thromboplastin Time 34.9 SECS (23.8-32.1)
[2021-03-07] MEDS ORDERED: ONDANSETRON 4 MG/2 ML VIAL ONE (12:31)
[2021-03-07] MEDS ORDERED: MORPHINE 2 MG/1 ML SYRINGE ONE (12:31)
[2021-03-07 12:37] LABS: Barbiturates Screen,Urine Negative (Negative); Benzodiazepines Screen,Urine Negative (Negative); Cannabinoid Screen,Urine Negative (Negative); Opiate Screen,Urine Positive (Negative); Phencyclidine Screen,Urine Negative (Negative)
[2021-03-07] MEDS: MORPHINE 2 MG/1 ML SYRINGE IV PRN ×2 (12:45→21:15)
[2021-03-07] MEDS ORDERED: LEVOFLOXACIN INJ 500 MG/100 ML PREMIX IV STA (12:59)
[2021-03-07] MEDS ORDERED: metroNIDAZOLE INJ 500 MG/100 ML PREMIX IV STA (12:59)
[2021-03-07] MEDS ORDERED: ACETAMINOPHEN 325 MG TABLET PO PRN (13:33)
[2021-03-07] MEDS ORDERED: MAGNESIUM SULF RIDER 2 GM/50 ML PREMIX IV PRN (13:33)
[2021-03-07] MEDS ORDERED: DEXTROSE 50% 25 GM/50 ML VIAL IV PRN (13:33)
[2021-03-07] MEDS ORDERED: BISACODYL 5 MG TABLET PO PRN (13:33)
[2021-03-07] MEDS ORDERED: ONDANSETRON 4 MG/2 ML VIAL IV PRN (13:33)
[2021-03-07] MEDS ORDERED: GLUCAGON 1 MG VIAL IM PRN (13:33)
[2021-03-07] MEDS ORDERED: MAGNESIUM SULF RIDER 4 GM/100 ML PREMIX IV PRN (13:33)
[2021-03-07] MEDS ORDERED: rOPINIRole 1 MG TABLET PO PRN (13:36)
[2021-03-07] MEDS ORDERED: BACLOFEN 10 MG TABLET PO PRN (13:36)
[2021-03-07] MEDS: LACTATED RINGERS 1,000 ML IV SCH (18:16)
[2021-03-07] MEDS: INSULIN LISPRO 100 UNIT/ML SUBCUT SCH ×2 (18:19→21:14)
[2021-03-07] MEDS: PIPERACILLIN/TAZOBACTAM 3,375 MG in SODIUM CHLORIDE 0.9% 100 ML IV SCH ×2 (18:19→22:20)
[2021-03-07] MEDS ORDERED: ALPRAZolam 0.5 MG TABLET PO PRN (18:23)
[2021-03-07] MEDS ORDERED: VENLAFAXINE XR 75 MG CAPSULE PO SCH (21:00)
[2021-03-07] MEDS: PREGABALIN 100 MG CAPSULE PO SCH (21:14)
[2021-03-07] MEDS: carvediloL 12.5 MG TABLET PO SCH (21:15)
[2021-03-07] MEDS: amLODIPine 10 MG TABLET PO SCH ×2 (21:15→21:20)
[2021-03-08] MEDS: LACTATED RINGERS 1,000 ML IV SCH ×2 (03:03→11:05)
[2021-03-08] MEDS: PIPERACILLIN/TAZOBACTAM 3,375 MG in SODIUM CHLORIDE 0.9% 100 ML IV SCH ×2 (05:57→12:59)
[2021-03-08 06:25] LABS: Basophils % 0.4 % (0.0-0.8); Eosinophils # 0.3 10*3/uL (0.0-0.87); Eosinophils % 3.8 % (0.00-10.9); Hematocrit 42.6 VOL% (35.7-47.0); Hemoglobin 13.4 GM/DL (12.0-16.0); Immature Granulocytes % 0.1 %; Immature Granulocytes Absolute 0.01 #; Lymphocytes # 2.7 10*3/uL (1.4-4.0); Lymphocytes % 38.9 % (21.3-54.2); Mean Corpuscular HGB Conc 31.5 GM/DL (32-36); Mean Corpuscular Volume 99.5 FL (87-102); Mean Platelet Volume 9.8 FL (9.6-12.0); Monocytes % 8.1 % (1.7-12.7); Neutrophils % 48.7 % (38.7-73.9); Platelet Count 207 T/CUMM (130-400); Red Blood Count 4.28 MC/CUMM (3.8-5.5); Red Cell Distribution Width 12.9 % (9.3-17.3); White Blood Count 7.1 T/CUMM (4-12)
[2021-03-08] MEDS ORDERED: LEVOTHYROXINE 100 MCG TABLET PO SCH (06:30)
[2021-03-08 06:40] LABS: Risk Ratio 3.72; VLDL Cholesterol 35.8 MG/DL
[2021-03-08 06:42] LABS: Calcium 8.8 MG/DL (8.5-10.1); Osmolality,Calculated 279.4 MOS/KG (273-304); Potassium 4.3 MMOL/L (3.5-5.1)
[2021-03-08] MEDS: INSULIN LISPRO 100 UNIT/ML SUBCUT SCH ×2 (07:56→11:40)
[2021-03-08] MEDS ORDERED: DEXTROSE 50% 25 GM/50 ML SYRINGE IV PRN (08:20)
[2021-03-08] MEDS ORDERED: PANTOPRAZOLE 40 MG TABLET PO SCH (09:00)
[2021-03-08] MEDS ORDERED: RIVAROXABAN 20 MG TABLET PO SCH (09:00)
[2021-03-08] MEDS: carvediloL 12.5 MG TABLET PO SCH (09:23)
[2021-03-08] MEDS: PREGABALIN 100 MG CAPSULE PO SCH (09:23)
[2021-03-08 12:01] VITALS: BP 111/72
== END 2021-03-08 13:30 | disposition home or self-care (01) ==
LOC: N.ED 09:31 → N.EDINP 09:31 → N.5E 12:45
PROVIDERS: ADMIT Internal Medicine; ATTEND Internal Medicine